=== PATIENT | male | born 1975 | race Caucasian/White ===

== ENCOUNTER 2021-11-12 11:28 | Outpatient (CLI) | payer MEDICAID, SELFPAY ==
[2021-11-12 22:53] LABS: Chloride* 103 mmol/L (96-114); Potassium* 5.2 mmol/L (3.6-5.1); Sodium* 139 mmol/L (135-149)
[2021-11-12 22:55] LABS: Carbon Dioxide* 30 mmol/L (20-32); Cholesterol* 189 mg/dL (90-199); Creatinine* 0.8 mg/dL (0.5-1.5); Estimated Glomerular Filt Rate 110 ml/min
[2021-11-12 22:56] LABS: Alanine Aminotransferase* 24 U/L (4-50); Alkaline Phosphatase* 81 U/L (40-150); Aspartate Amino Transferase* 24 U/L (12-35); Bilirubin Total* 0.3 mg/dL (0.1-1.5); Blood Urea Nitrogen* 14 mg/dL (5-24); Calcium* 9.4 mg/dL (8.4-10.6); Glucose* 130 mg/dL (60-115); HDL Cholesterol* 36 mg/dL (>=40); LDL Cholesterol Calculated 129 mg/dL (<100); Total Protein* 6.9 g/dL (6.0-8.3); Triglycerides* 118 mg/dL (40-149)
[2021-11-12 23:00] LABS: Microalbumin Urine < 1 mg/dL
[2021-11-12 23:01] LABS: Creatinine Urine 38.3 mg/dL; Microalbumin Creatinine Ratio 20 mg/g (0-30)
[2021-11-12 23:26] LABS: PSA Screen* 0.47 ng/mL (0.10-4.00)
== END 2021-11-12 11:29 | disposition home or self-care (01) ==
PROVIDERS: PCP Family Medicine; Visit Provider Family Medicine
DX: Z00.00 Encounter for general adult medical examination without abnormal findings (principal); E11.9 Type 2 diabetes mellitus without complications; F90.9 Attention-deficit hyperactivity disorder, unspecified type; N52.9 Male erectile dysfunction, unspecified; Z12.5 Encounter for screening for malignant neoplasm of prostate; Z13.6 Encounter for screening for cardiovascular disorders
CPT/HCPCS: 80053; 80061; 82043; 82570; 84153

== ENCOUNTER 2022-05-16 13:16 | Outpatient (CLI) | payer MEDICAID, SELFPAY ==
[2022-05-16 21:54] LABS: Albumin* 4.2 g/dL (3.3-5.0)
[2022-05-16 21:55] LABS: Chloride* 104 mmol/L (96-114); Potassium* 4.6 mmol/L (3.6-5.1); Sodium* 139 mmol/L (135-149)
[2022-05-16 21:57] LABS: Bilirubin Total* 0.4 mg/dL (0.1-1.5); Carbon Dioxide* 29 mmol/L (20-32); Cholesterol* 225 mg/dL (90-199); Creatinine* 0.9 mg/dL (0.5-1.5); Estimated Glomerular Filt Rate 106 ml/min
[2022-05-16 21:58] LABS: Alanine Aminotransferase* 28 U/L (4-50); Alkaline Phosphatase* 89 U/L (40-150); Aspartate Amino Transferase* 30 U/L (12-35); Blood Urea Nitrogen* 20 mg/dL (5-24); Glucose* 57 mg/dL (60-115); Total Protein* 7.2 g/dL (6.0-8.3); Triglycerides* 163 mg/dL (40-149)
[2022-05-16 21:59] LABS: HDL Cholesterol* 50 mg/dL (>=40); LDL Cholesterol Calculated 142 mg/dL (<100)
== END 2022-05-16 13:17 | disposition home or self-care (01) ==
PROVIDERS: PCP Family Medicine; Visit Provider Family Medicine
DX: Z00.00 Encounter for general adult medical examination without abnormal findings (principal); E11.9 Type 2 diabetes mellitus without complications; E78.00 Pure hypercholesterolemia, unspecified; E87.5 Hyperkalemia
CPT/HCPCS: 80053; 80061; 82010

== ENCOUNTER 2023-01-09 08:26 | Outpatient (CLI) | payer MEDICAID, SELFPAY | END 2023-01-09 08:27 | disposition home or self-care (01) | LOC: LKVREF 08:27 | PROVIDERS: PCP Family Medicine; Visit Provider Family Medicine | DX: Z00.00 Encounter for general adult medical examination without abnormal findings (principal); E78.00 Pure hypercholesterolemia, unspecified; E87.5 Hyperkalemia; E11.9 Type 2 diabetes mellitus without complications | CPT/HCPCS: 80048; 82043; 82570 ==

== ENCOUNTER 2023-08-29 08:28 | Outpatient (CLI) | payer OTHER, SELFPAY | END 2023-08-29 08:29 | disposition home or self-care (01) | LOC: LKVREF 08:29 | PROVIDERS: PCP Family Medicine; Visit Provider Family Medicine | DX: E11.9 Type 2 diabetes mellitus without complications (principal); E78.00 Pure hypercholesterolemia, unspecified | CPT/HCPCS: 80053; 80061 ==

== ENCOUNTER 2024-03-12 09:44 | Outpatient (CLI) | payer OTHER, SELFPAY | END 2024-03-12 09:45 | disposition home or self-care (01) | LOC: NFLDREF 03-17 05:57 | PROVIDERS: PCP Family Medicine; Referring Provider Family Medicine; Visit Provider Family Medicine | DX: E11.65 Type 2 diabetes mellitus with hyperglycemia (principal); E78.00 Pure hypercholesterolemia, unspecified; Z79.4 Long term (current) use of insulin | CPT/HCPCS: 80053; 80061; 82043; 82570 ==

== ENCOUNTER 2024-08-24 12:18 | Outpatient (CLI) | payer OTHER, SELFPAY | END 2024-08-24 12:19 | disposition home or self-care (01) | LOC: LKVREF 12:20 | PROVIDERS: PCP Family Medicine; Visit Provider Family Medicine | DX: Z12.5 Encounter for screening for malignant neoplasm of prostate (principal) | CPT/HCPCS: G0103 ==